=== PATIENT | male | born 1990 | race Caucasian/White ===

== ENCOUNTER 2016-10-14 19:07 | Emergency (ER) | payer MEDICAID ==
[2016-10-14 19:25] VITALS: BP 126/61
--- NOTE | 2016-10-14 21:20 | EDM.PDOC ---
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 He states that he developed pain and tenderness around his right ear and right face about 4 days ago. The patient's mother states that he had a temperature of 101 yesterday. He has been taking Motrin and Tylenol to treat the pain. No recent nausea, vomiting, consultation, or diarrhea. The patient was seen at a walk-in clinic on 10/12/2016. No infection was found, but the patient was started on Augmentin 875 Q12 hrs. He has taken 5 doses so far. His symptoms have not improved. The patient's ENT is in [place]. Other Treatments [employer]ITY ARCHITECT: motrin 800 mg at 1800 Right Ear Pain Score (Numeric/FACES): 10 - Related Data Allergies Allergy/AdvReac Type Severity Reaction Status Date / Time cefixime [From Suprax] Allergy Rash Verified 10/14/16 19:19 lurasidone [From Latuda] Allergy Irritabilit Verified 10/14/16 19:19 y Home Meds: Home Meds Augmentin. 1 tab PO BID 10/14/16 [History] Loratadine [Claritin] 10 mg PO DAILY 10/14/16 [History] Meloxicam. 10/14/16 [History] Methylphenidate HCl [Concerta] 1 tab PO DAILY 10/14/16 [History] Past Medical History HEENT History: Reports: Allergic Rhinitis Musculoskeletal History: Reports: Other (See Below) (Goldenhar syndrome) Psychiatric History: Reports: ADHD, Autism - Past Surgical History HEENT Surgical History: Reports: Myringotomy w Tube(s) (left), Oral Surgery ( Upper wisdom teeth extraction), Other (See Below) (Lower frenulectomy. 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[place]) ED ROS ENT - Review of Systems Review Of Systems: See Below Constitutional: Reports: No Symptoms HEENT: Reports: Ear Pain (as per the HPI) Respiratory: Reports: No Symptoms Cardiovascular: Reports: No Symptoms Endocrine: Reports: No Symptoms GI/Abdominal: Reports: No Symptoms : Reports: No Symptoms Musculoskeletal: Reports: No Symptoms Skin: Reports: No Symptoms Neurological: Reports: No Symptoms Psychiatric: Reports: No Symptoms Hematologic/Lymphatic: Reports: No Symptoms Immunologic: Reports: No Symptoms ED EXAM, ENT - Physical Exam Exam: See Below Exam Limited By: No Limitations General Appearance: Alert, WD/WN, No Apparent Distress Eye Exam: Bilateral Eye: Normal Inspection Ears: Other (The right ear canal is anatomically very tiny, however, there is no associated erythema or emanating purulence.) Nose: Normal Inspection, Normal Mucousa, No Blood Mouth/Throat: Normal Inspection, Normal Gums, Normal Lips, Normal Oropharynx, Normal Teeth Head: Atraumatic, Normocephalic Neck: Normal Inspection, Supple, Full Range of Motion, Other (There is tenderness inferior to the patient's right ear and to the upper portion of the right side of the neck, however, no associated visible swelling, erythema, or ecchymosis). No: Lymphadenopathy (L), Lymphadenopathy (R) Respiratory/Chest: No Respiratory Distress, Lungs Clear, Normal Breath Sounds, No Accessory Muscle Use Cardiovascular: Normal Peripheral Pulses, Regular Rate, Rhythm, No Gallop, No JVD, No Murmur, No Rub GI/Abdominal: Normal Bowel Sounds, Soft, Non-Tender, No Organomegaly, No Distention, No Abnormal Bruit, No Mass (Male) Exam: Deferred Rectal (Males) Exam: Deferred Back: Normal Inspection, Full Range of Motion Extremities: Normal Inspection, Normal Range of Motion, No Pedal Edema, Normal Capillary Refill Neurological: Alert, Oriented, No Motor/Sensory Deficits Psychiatric: Normal Affect Skin: Warm, Dry, Intact, Normal Color, No Rash Course - Vital Signs Last Recorded V/S: Last Vital Signs Temp 36.7 C 10/14/16 19:21 Pulse 78 10/14/16 21:34 Resp 18 10/14/16 21:34 BP 126/61 10/14/16 19:21 Pulse Ox 100 10/14/16 21:34 - Orders/Labs/Meds Labs: Laboratory Tests 10/14/16 10/14/16 Range/Units 20:06 20:06 WBC 11.92 H (4.23-9.07) K/mm3 RBC 4.72 (4.63-6.08) M/mm3 Hgb 14.0 (13.7-17.5) gm/L Hct 41.1 (40.1-51.0) % MCV 87.1 (79.0-92.2) fl MCH 29.7 (25.7-32.2) pg MCHC 34.1 (32.2-35.5) g/dl RDW Std Deviation 40.8 (35.1-43.9) fL Plt Count 184 (163-337) K/mm3 MPV 8.8 L (9.4-12.3) fl Neutrophils % (Manual) 67 H (40-60) % Band Neutrophils % 0 (0-10) % Lymphocytes % (Manual) 25 (20-40) % Atypical Lymphs % 0 % Monocytes % (Manual) 7 (2-10) % Eosinophils % (Manual) 0 L (0.8-7.0) % Basophils % (Manual) 0 L (0.2-1.2) Promyelocytes % 1 Platelet Estimate Adequate Plt Morphology Comment Normal Sodium 139 (136-145) mEq/L Potassium 4.0 (3.5-5.1) mEq/L Chloride 105 (98-107) mEq/L Carbon Dioxide 28 (21-32) mEq/L Anion Gap 10.0 (5-15) BUN 16 (7-18) mg/dL Creatinine 1.1 (0.7-1.3) mg/dL Est Cr Clr Drug Dosing 106.00 mL/min Estimated GFR (MDRD) > 60 (>60) mL/min BUN/Creatinine Ratio 14.5 (14-18) Glucose 104 (74-106) mg/dL Calcium 8.7 (8.5-10.1) mg/dL Total Bilirubin 0.5 (0.2-1.0) mg/dL AST 34 (15-37) U/L ALT 69 H (16-63) U/L Alkaline Phosphatase 65 (46-116) U/L C-Reactive Protein 2.0 H* (<1.0) mg/dL Total Protein 7.3 (6.4-8.2) g/dl Albumin 4.0 (3.4-5.0) g/dl Globulin 3.3 gm/dL Albumin/Globulin Ratio 1.2 (1-2) - Re-Assessments/Exams Free Text/Narrative Re-Assessment/Exam: 10/14/16 21:15 Test results discussed with the patient and his mother. Today's workup is grossly unremarkable. While the patient has a mildly elevated WBC count, he has 0% bandemia. His CRP is only slightly elevated at 2.0. On examination, I found no evidence for infection. There was no purulence from his ear canal, no associated erythema, and no visible facial swelling or lymphadenopathy. Further, the patient's symptoms have not improved despite 5 doses of Augmentin. I suspect that the patient may be suffering from a salivary gland stone. I'm recommending sialagogues and ibuprofen. Given the patient's anatomic abnormalities, I would like the patient to follow- up with ENT for further evaluation. Departure - Departure Time of Disposition: 21:15 Disposition: Home, Self-Care 01 Condition: Fair Clinical Impression: Right facial pain - Discharge Information Referrals: PCP,Edgardo [Primary Care Provider] - Huang Hagen MD [Physician] - Forms: ED Department Discharge Additional Instructions: You were seen in the emergency room for right facial pain. Workup in the ER included a CBC, CMP, and CRP. Your white blood cell count is mildly elevated at 11.92, but with zero band- forms, the types of white blood cells that fight bacteria. Your CRP, a measurement of inflammation, is mildly elevated at 2.0, more consistent with a viral illness than a bacterial infection. The cause of your facial pain is unclear, but we see no evidence of an ear infection. Your pain may be due to a salivary gland stone. We recommend you suck on tart/sour candies, to induce saliva. Stay well hydrated. We recommend you stop taking Claritin, or any other antihistamine, as these types of medicines dry your mucous membranes. Please follow-up with the ENT Dr. Hagen at the next available appointment. If any other problems, please do not hesitate to return to the ER.
== END 2016-10-14 21:30 | disposition home or self-care (01) ==
LOC: JD.ED 19:07
DX: R51 Headache (principal); F84.0 Autistic disorder; F90.9 Attention-deficit hyperactivity disorder, unspecified type; Z96.22 Myringotomy tube(s) status; Z79.899 Other long term (current) drug therapy; Z88.1 Allergy status to other antibiotic agents; Z88.8 Allergy status to other drugs, medicaments and biological substances
CPT/HCPCS: 36415; 80053; 85025; 86140; 99282; 99283

== ENCOUNTER 2016-10-16 14:58 | Emergency (ER) | payer MEDICAID ==
[2016-10-16 15:28] VITALS: BP 131/78
[2016-10-16] MEDS ORDERED: Morphine 4 MG/ML Syringe IVPUSH ONE (15:45)
[2016-10-16] MEDS ORDERED: Ketorolac 30 MG/ML SDV IVPUSH ONE (15:45)
--- NOTE | 2016-10-16 15:49 | EDM.PDOC ---
ED HPI GENERAL MEDICAL PROBLEM - General Chief Complaint: ENT Problem Stated Complaint: EAR PAIN/FACE PAIN Time Seen by Provider: 10/16/16 15:19 Source of Information: Reports: Patient History Limitations: Reports: No Limitations - History of Present Illness INITIAL COMMENTS - FREE TEXT/NARRATIVE: 25 y/o M with hx congenital abnormality of facial structures and hx reconstruction of external structures of L ear as a child presents with L ear/ face pain. Pain started about a week ago. Gradual onset. No provoking factors or injury. States he has severe pain behind the L ear. Pain is constant. Sharp. Severe intensity. No provoking or relieving factors. Maybe slightly worse with head movement but patient not sure. No dental pain. No sore throat or neck pain. No hearing change. No ear discharge. States it initially felt like a possible ear infection. He's had multiple ear infections. Seen in clinic 5days ago and rx Augmentin which he's been taking. No improvement. Saw provider here a couple of days ago who suspected sialolithiasis. Has been taking meloxicam and OTC meds for pain with no relief. Can't sleep at night due to pain. States he's never had facial pain like this before. Treatments HOOP RIVETER: Reports: Acetaminophen, NSAIDS Right Face Pain Score (Numeric/FACES): 10 - Related Data Allergies Allergy/AdvReac Type Severity Reaction Status Date / Time cefixime [From Suprax] Allergy Rash Verified 10/16/16 15:15 lurasidone [From Latuda] Allergy Irritabilit Verified 10/16/16 15:15 y Home Meds: Home Meds Augmentin. 1 tab PO BID 10/14/16 [History] Loratadine [Claritin] 10 mg PO DAILY 10/14/16 [History] Methylphenidate HCl [Concerta] 1 tab PO DAILY 10/14/16 [History] Clindamycin HCl 300 mg PO QID 10 Days 10/16/16 [Rx] oxyCODONE 5 mg PO Q6H PRN #16 tablet 10/16/16 [Rx] Past Medical History HEENT History: Reports: Allergic Rhinitis Musculoskeletal History: Reports: Other (See Below) (Goldenhar syndrome) Other Musculoskeletal History: oneal Karie Syndrome Psychiatric History: Reports: ADHD, Autism - Past Surgical History HEENT Surgical History: Reports: Myringotomy w Tube(s) (left), Oral Surgery ( Upper wisdom teeth extraction), Other (See Below) (Lower frenulectomy. Right ear cosmetic surgery) Social & Family History - Tobacco Use Smoking Status *Q: Never Smoker - Recreational Drug Use Recreational Drug Use: No - Living Situation & Occupation Living situation: Reports: Single, Other (half-way in [place]) ED ROS ENT - Review of Systems Review Of Systems: See Below Constitutional: Reports: Chills, Malaise HEENT: Reports: Ear Pain. Denies: Dental Pain, Ear Discharge, Throat Pain, Throat Swelling Respiratory: Denies: Shortness of Breath, Cough Cardiovascular: Denies: Chest Pain GI/Abdominal: Denies: Vomiting Skin: Reports: No Symptoms ED EXAM, ENT - Physical Exam Exam: See Below Exam Limited By: No Limitations General Appearance: Alert, WD/WN, No Apparent Distress Eye Exam: Bilateral Eye: Normal Inspection Ears: Other (R ear: External ear structures show no swelling, tenderness, erythema, or other sign of infection. Some discomfort with tugging of the pinna. No discharge in the auditory canal. NO visible inflammation of the auditory canal. Unable to visualize TM with otoscope. Mild mastoid TTP with no appreciable swelling or skin abnormality. Neck supple. No LAD or masses palpated. Limited ability to open the mouth. Moderate TTP along superior gum line. No visible abscess. No additional visible oropharyngeal abnormality.) Nose: Normal Inspection, Normal Mucousa, No Blood Mouth/Throat: Normal Lips, Normal Teeth Head: Atraumatic, Normocephalic Neck: Normal Inspection, Supple, Non-Tender, Full Range of Motion Respiratory/Chest: No Respiratory Distress, Chest Non-Tender Neurological: Alert, Oriented, Normal Cognition, No Motor/Sensory Deficits Psychiatric: Normal Affect, Normal Mood Skin: Warm, Dry, Intact, Normal Color, No Rash Course - Vital Signs Last Recorded V/S: Last Vital Signs Temp 36.9 C 10/16/16 15:21 Pulse 61 10/16/16 15:21 Resp 18 10/16/16 15:21 BP 131/78 10/16/16 15:21 Pulse Ox 98 10/16/16 15:21 - Orders/Labs/Meds Labs: Laboratory Tests 10/16/16 10/16/16 Range/Units 16:05 16:05 WBC 9.40 H (4.23-9.07) K/mm3 RBC 4.77 (4.63-6.08) M/mm3 Hgb 13.8 (13.7-17.5) gm/L Hct 41.5 (40.1-51.0) % MCV 87.0 (79.0-92.2) fl MCH 28.9 (25.7-32.2) pg MCHC 33.3 (32.2-35.5) g/dl RDW Std Deviation 40.8 (35.1-43.9) fL Plt Count 197 (163-337) K/mm3 MPV 8.4 L (9.4-12.3) fl Neut % (Auto) 68.3 H (34.0-67.9) % Lymph % (Auto) 21.1 L (21.8-53.1) % [place] % (Auto) 9.9 (5.3-12.2) % Eos % (Auto) 0.4 L (0.8-7.0) Baso % (Auto) 0.2 (0.1-1.2) % Neut # (Auto) 6.42 H (1.78-5.38) K/mm3 Lymph # (Auto) 1.98 (1.32-3.57) K/mm3 [place] # (Auto) 0.93 H (0.30-0.82) K/mm3 Eos # (Auto) 0.04 (0.04-0.54) K/mm3 Baso # (Auto) 0.02 (0.01-0.08) K/mm3 C-Reactive Protein 4.7 H* (<1.0) mg/dL Meds: Medications Discontinued Medications Generic Name Dose Route Start Last Admin Trade Name Freq PRN Reason Stop Dose Admin Clindamycin HCl 450 mg 10/16/16 18:07 10/16/16 18:15 Cleocin PO 10/16/16 18:08 450 mg ONETIME ONE Administration Iopamidol 80 ml 10/16/16 15:54 10/16/16 16:35 Isovue-300 (61%) IVPUSH 10/16/16 15:55 80 ml ONETIME ONE Administration Ketorolac Tromethamine 30 mg 10/16/16 15:45 10/16/16 16:18 Toradol IVPUSH 10/16/16 15:46 30 mg ONETIME ONE Administration Morphine Sulfate 4 mg 10/16/16 15:45 10/16/16 16:13 Morphine IVPUSH 10/16/16 15:46 4 mg ONETIME ONE Administration Sodium Chloride 10 ml 10/16/16 15:54 10/16/16 16:35 Saline Flush FLUSH 10 ml ONETIME PRN Administration IV FLUSH Departure - Departure Time of Disposition: 18:12 Disposition: Home, Self-Care 01 Clinical Impression: Cellulitis Qualifiers: Site of cellulitis: face Qualified Code(s): L03.211 - Cellulitis of face - Discharge Information Prescriptions: Clindamycin HCl 300 mg PO QID 10 Days oxyCODONE 5 mg PO Q6H PRN #16 tablet PRN Reason: Pain Instructions: Cellulitis, Adult, [id number] Referrals: PCP,None [Primary Care Provider] - Forms: ED Department Discharge Additional Instructions: 1. Take your usual over the counter medications. You may take up to 800mg ibuprofen three times daily. 2. Take oxycodone as prescribed for severe pain as needed 3. Take clindamycin antibiotic as prescribed. Take a dose tonight before bed. 4. Return to the Emergency Department if you have worsening pain, fever, or other concerning symptoms. 5. Otherwise follow up with your regular doctor once you return home.
[2016-10-16] MEDS ORDERED: Iopamidol 612 MG/ML 100 ML Bottle IVPUSH ONE (15:54)
[2016-10-16] MEDS: Sodium Chloride 0.9% 10 ML Syringe FLUSH PRN ×2 (16:17→16:35)
--- NOTE | 2016-10-16 16:59 | CT ---
CT maxillofacial (with contrast) Technique: Multiple axial sections were obtained from below the mandible superiorly through the frontal sinuses. Intravenous contrast was utilized. Reconstructed coronal and sagittal images were reviewed. Comparison: No previous study. Findings: Inflammatory change is seen within the subcutaneous fat within the right side of the face. No fluid collections of abscess are seen. Etiology for this finding is not seen. Mild areas of mucosal thickening are seen within the ethmoid sinuses. Other sinuses are clear. No air-fluid levels are seen. No facial bone fracture is identified. Impression: 1. Inflammatory type change within the subcutaneous fat within the right side of the face. This is nonspecific but presumably represents cellulitis. 2. No abscess is seen. 3. Minimal mucosal thickening within the ethmoid sinuses which is likely incidental. Diagnostic code #3
[2016-10-16] MEDS ORDERED: Clindamycin HCl 150 MG Cap PO ONE (18:07)
== END 2016-10-16 18:35 | disposition home or self-care (01) ==
LOC: JD.ED 14:58
DX: L03.211 Cellulitis of face (principal); Z88.8 Allergy status to other drugs, medicaments and biological substances; Z79.899 Other long term (current) drug therapy; Z96.22 Myringotomy tube(s) status
CPT/HCPCS: 36415; 70487; 85025; 86140; 96374; 96375; 99284; A9270; J1885; J2270; J7050; Q9967